=== PATIENT | male | born 1990 | race Caucasian/White ===

== ENCOUNTER 2019-03-14 20:59 | Emergency (ER) | payer MEDICAID ==
[~2019-03-14] VITALS: Ht 172.7 cm; Wt 71.2 kg
[2019-03-14 21:02] VITALS: Ht 172.7 cm; Wt 71.2 kg
[2019-03-14 22:46] LABS: BASOPHIL % 0.3 % (0-2); PLATELET COUNT 164 x10^3mcL (130-400); RED CELL DISTRIBUTION WIDTH 12.5 % (11.5-14.5)
[2019-03-14 22:59] LABS: AMPHETAMINE QUAL UR NEGATIVE (See below)
[2019-03-14 23:00] LABS: CARBON DIOXIDE 29.8 mmol/L (21-32); CHLORIDE SERUM 101 mmol/L (98-107); GFR1 > 60 mL/min; GLUCOSE SERUM 102 mg/dL (74-106); POTASSIUM SERUM 3.6 mmol/L (3.5-5.1); SODIUM SERUM 139 mmol/L (136-145)
[2019-03-14 23:01] LABS: ALBUMIN 4.3 g/dL (3.4-5.0); ALT/SGPT 29 U/L (16-63); AST/SGOT 64 U/L (15-37); BILIRUBIN TOTAL 0.84 mg/dL (0.20-1.00); CALCIUM 9.2 mg/dL (8.5-10.1); TOTAL PROTEIN, SERUM 8.2 g/dL (6.4-8.2)
[2019-03-14 23:02] LABS: ALKALINE PHOSPHATASE 81 U/L (46-116)
[2019-03-15 00:26] VITALS: BP 120/76
== END 2019-03-15 00:25 | disposition home or self-care (01) ==
LOC: ED 20:59
PROVIDERS: Emergency Medicine
DX: R07.9 Chest pain, unspecified (principal); T40.5X5A Adverse effect of cocaine, initial encounter; F14.10 Cocaine abuse, uncomplicated; F10.10 Alcohol abuse, uncomplicated; G47.00 Insomnia, unspecified; Y92.89 Other specified places as the place of occurrence of the external cause
CPT/HCPCS: 36415; Q0092